=== PATIENT | male | born 1980 | race African-American/Black ===

== ENCOUNTER 2016-04-07 13:48 | Emergency (ER) | payer BC, OTHER ==
[2016-04-07 14:21] VITALS: BP 179/105; PULSE 110; TEMP 98.7; BMI 31.8
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
== END 2016-04-07 15:49 | disposition home or self-care (01) ==
LOC: JERFT 13:48
DX: S53.492A Other sprain of left elbow, initial encounter (principal); W19.XXXA Unspecified fall, initial encounter; Y93.89 Activity, other specified; Y92.118 Other place in children's home and orphanage as the place of occurrence of the external cause; Y99.0 Civilian activity done for income or pay
CPT/HCPCS: 73070-TC-LT; 99281-25